=== PATIENT | female | born 1990 | race Caucasian/White ===

== ENCOUNTER 2022-07-22 21:55 | Inpatient (IN) | payer OTHER, SELFPAY ==
--- NOTE | 2022-06-30 12:56 | PC.NURSE ---
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 Patient states did genetic testing--baby is a tabitha of both syndromes
--- NOTE | 2022-07-22 07:42 | PM.IMHP ---
H&P: HPI History of Present Illness Date/Time: 07/22/22 07:42 Chief Complaint: induction of labor Narrative: 32-year-old 4 para 2 admitted for induction of labor at term. She is positive for group B strep. Her last menstrual period was 10/15/2021 with an EDC of 07/29/2022 confirmed by very early ultrasound. The cervix is favorable risks and benefits reviewed. PMFSH Family History Family History Son Rock-Hirschhorn syndrome Sibling Hallermann-Streiff syndrome Sibling Hypertension Social History Social History Smoking status: Never smoker Substance use: never Gender identity (if verbalized by the patient): Female Spiritual care concerns: No Meds Home Medications and Allergies Home Medications Medication Instructions Recorded Confirmed Type vit no.95-ferrous 1 tablet PO DAILY 09/05/19 09/05/19 History fumarate 28 mg-folic acid 800 mcg tablet () Allergies Allergy/AdvReac Type Severity Reaction Status Date / Time No Known Allergies Allergy Unknown Verified 06/30/22 12:31 Exam Const: General: cooperative, healthy appearing and comfortable Nutritional Appearance: average body habitus Orientation/consciousness: oriented to person, oriented to place and oriented to time Chest: Chest palpation & inspection: normal inspection of the chest Resp: Effort & Inspection: normal respiratory effort Cardio: Rate: regular rate Rhythm: regular rhythm Heart sounds: S1 normal heart sound present and S2 normal heart sound present GI: Inspection: normal to inspection Assessment and Plan Assessment and plan (1) Term : Code(s): Z34.90 - Encounter for supervision of normal , unspecified, unspecified trimester Status: Acute (2) Positive testing for group B Streptococcus: Code(s): B95.1 - Streptococcus, group B, as the cause of diseases classified elsewhere Status: Acute Plan medical induction of labor. Group B strep prophylaxis. Spontaneous vaginal delivery is expected. She has an epidural candidate
[2022-07-22 22:28] VITALS: BMI 27.5
--- NOTE | 2022-07-22 22:29 | LDADM ---
This patient, Christal Dineor, was admitted to Labor/Delivery/Recovery 105 on 07/22/22 at 21:55. Plans for labor, pain management and were discussed with patient. Patient/family oriented to hospital policies and general routines including ID bracelet, bed and alarms, visiting hours, pain management, procedures, bathroom and other care routines, personal items, smoking policy, room service/diet and guest tray routines, security routines, and visiting hours. Patient/Family are encouraged to report perceived risks to care and to ask questions if they do not understand what they are told or what they should do. See OBIX for further documentation.
[2022-07-22 23:00] VITALS: TEMP 36.4
[2022-07-22 23:00] LABS: Basophils Percent Auto 0.2 % (0.2-1.2); Eosinophils Absolute Auto 0.2 K/mm3 (0-0.3); Eosinophils Percent Auto 1.5 % (0-4.4); Hematocrit 35.8 % (37.0-47.0); Hemoglobin 11.8 g/dL (12.0-15.0); Immature Granulocyte Absolute 0.06 K/mm3 (0.00-0.031); Immature Granulocyte Percent A 0.5 % (0-0.5); Lymphocytes Absolute Auto 2.67 K/mm3 (0.9-3.2); Lymphocytes Percent Auto 21.7 % (18.3-44.2); Mean Corpuscular Hemoglobin 29.5 pg (26-34); Mean Corpuscular Volume 89.5 fl (80-100); Mean Platelet Volume 10.9 fl (7.4-10.4); Monocytes Absolute Auto 0.7 K/mm3 (0.1-0.6); Monocytes Percent Auto 5.9 % (2.6-8.5); Neutrophils Absolute Auto 8.6 K/mm3 (1.3-6.7); Neutrophils Percent Auto 70.2 % (45.5-73.1); Platelet Count Result 251 k/mm3 (150-375); Red Cell Distribution Width 13.8 % (11.5-14.5); White Blood Count 12.3 K/mm3 (4.5-10.0)
[2022-07-22] MEDS: LACTATED RINGERS 1,000 ML 125 ML IV CONT (23:00)
[2022-07-22] MEDS: OXYTOCIN 30 UNITS/NS 500 ML 30 UNITS/500 ML BAG IV CONT (23:00)
[2022-07-22] MEDS: AMPICILLIN 2 GM/NS 100 ML 2 GM/100 ML BAG IVPB (23:00)
[2022-07-23] VITALS (124 sets, daily range): BP systolic 95–155; BP diastolic 34–98; PULSE 58–109; RESP 16–18; TEMP 36.4–36.9; O2SAT 94–100
[2022-07-23] MEDS: LACTATED RINGERS 1,000 ML 125 ML IV CONT ×2 (01:01→05:34)
--- NOTE | 2022-07-23 01:15 | WPDANESEPP ---
Anes - Eval Pre Procedure Procedure: labor epidural Date/Time: 07/23/22 01:15 Pre Op Diagnosis: IOL Patient Data Age: 32 Gender: F Height: 1.65 m Weight: 75 kg Last Vital Signs Temp 36.4 C L 07/22/22 23:00 Pulse 62 07/23/22 01:00 BP 124/64 07/23/22 01:00 Pulse Ox 99 07/23/22 01:12 O2 Del Method Room Air 07/22/22 22:28 Allergies Allergy/AdvReac Type Severity Reaction Status Date / Time No Known Allergies Allergy Unknown Verified 06/30/22 12:31 Home Medications Medication Instructions Recorded Confirmed Type vit no.95-ferrous 1 tablet PO DAILY 09/05/19 07/22/22 History fumarate 28 mg-folic acid 800 mcg tablet () Laboratory Tests 07/22/22 07/22/22 07/22/22 22:44 22:44 22:44 WBC 12.3 K/mm3 H K/mm3 (4.5-10.0) RBC 4.00 M/mm3 L M/mm3 (4.2-5.4) Hgb 11.8 g/dL L g/dL (12.0-15.0) Hct 35.8 % L % (37.0-47.0) MCV 89.5 fl fl (80-100) MCH 29.5 pg pg (26-34) MCHC 33.0 g/dl g/dl (32-36) RDW 13.8 % % (11.5-14.5) Plt Count 251 k/mm3 k/mm3 (150-375) MPV 10.9 fl H fl (7.4-10.4) Immature Gran % (Auto) 0.5 % % (0-0.5) Neut % (Auto) 70.2 % % (45.5-73.1) Lymph % (Auto) 21.7 % % (18.3-44.2) [place] % (Auto) 5.9 % % (2.6-8.5) Eos % (Auto) 1.5 % % (0-4.4) Baso % (Auto) 0.2 % % (0.2-1.2) Lymph # (Auto) 2.67 K/mm3 K/mm3 (0.9-3.2) [place] # (Auto) 0.7 K/mm3 H K/mm3 (0.1-0.6) Eos # (Auto) 0.2 K/mm3 K/mm3 (0-0.3) Baso # (Auto) 0.0 K/mm3 K/mm3 (0.0-0.1) Abs Immat Gran (auto) 0.06 K/mm3 H K/mm3 (0.00-0.031) Absolute Neuts (auto) 8.6 K/mm3 H K/mm3 (1.3-6.7) Absolute Nucleated RBC 0.0 K/mm3 K/mm3 (0.0-0.012) Nucleated RBC % 0.0 % % (0.0-0.2) RPR Pending Blood Type A Positive Antibody Screen Negative Patient hx anesthesia problems: none Family hx anesthesia problems: none Results Review: All pre-operative results and documents have been reviewed as part of the pre-operative evaluation. [facility] Family History Family History Son Rock-Hirschhorn syndrome Sibling Hallermann-Streiff syndrome Sibling Hypertension Social History Social History Smoking packs per day: 0.5 Smoking cigarettes per day: 10.0 Years smoked: 10 Smoking pack-years: 5.00 Smoking status: Former smoker Tobacco type: cigarettes Substance use: never Gender identity (if verbalized by the patient): Female Spiritual care concerns: No Exam Day of Procedure 07/23/22 01:15 Patient weight: overweight Heart: regular rate and rhythm Lungs: normal air movement Airway: Mallampati scale Neurological: alert and oriented
[2022-07-23] MEDS: AMPICILLIN 1 GM/NS 50 ML 1 GM/50 ML BAG IVPB ×2 (03:00→07:08)
--- NOTE | 2022-07-23 06:14 | PM.OBPNLAB ---
Pain Control Date/time seen: 07/23/22 06:14 Pain control: tolerating well and epidural Pelvic Exam Dilation (cm): 4 Effacement (%): 80 station: -2 Amniotic membrane status: Ruptured Contractions Monitor mode: External Contraction frequency: 3
[2022-07-23 06:25] LABS: Rapid Plasma Reagin Non-Reactive (NonReactive)
--- NOTE | 2022-07-23 07:33 | PM.OBPRVD ---
OB - Delivery Note Procedure Delivery date: 07/23/22 Procedure: mil Induction method: AROM Delivery augmentation: Pitocin Delivery monitor: External FHT Route of delivery: Episiotomy description: None Laceration Description: Perineal - 1st Degree Specimen: No Quantitative Blood Loss (ml): 59 Anesthesia type: Epidural Disposition: Floor Baby Date of : 07/23/22 Time of : 07:20 Weeks of gestation at delivery: 39 gender: Female Weight (pounds): 7 Weight (ounces): 11 presentation: vertex position: Right Occiput Anterior Placenta delivery description: Spontaneous Cord Vessel Description: 3 Vessels and Delayed Cord Clamping score one minute: 9 score five minutes: 9
[2022-07-23] MEDS: OXYTOCIN 30 UNITS/NS 500 ML 30 UNITS/500 ML BAG 125 UNITS IV CONT (07:48)
[2022-07-23] MEDS: WITCH HAZEL 40 PADS 1 PAD TOPICAL (10:28)
[2022-07-23] MEDS: BENZOCAINE 20% AER SPR (*SP) 56 GM CAN 1 SPRAY TOPICAL (10:29)
[2022-07-23] MEDS: IBUPROFEN 600 MG TABLET PO ×2 (13:11→21:11)
[2022-07-23] MEDS: MULTIVIT/MIN/PREN/FOL AC/IRON TABLET 1 TAB PO (13:11)
[2022-07-23] MEDS: LANOLIN (LANSINOH) 7.5 GM CREAM 1 APPLIC TOPICAL (13:12)
[2022-07-23] MEDS: ACETAMINOPHEN 325 MG TABLET 650 MG PO (17:37)
[2022-07-23] MEDS: DOCUSATE SODIUM 100 MG CAPSULE PO (17:38)
[2022-07-24] MEDS: IBUPROFEN 600 MG TABLET PO ×2 (04:47→12:01)
[2022-07-24 05:04] VITALS: BP 113/70; PULSE 75; RESP 18; TEMP 36.8; O2SAT 98
[2022-07-24 05:13] LABS: Hematocrit 32.5 % (37.0-47.0); Hemoglobin 10.6 g/dL (12.0-15.0)
--- NOTE | 2022-07-24 08:34 | WPDANESPN ---
Anes - Prog Note Post-Op Date/Time: 07/24/22 08:34 Cardiovascular status: normal Respiratory status: normal Airway patency: baseline Mental status: baseline Post-Op hydration status: normal Vital Signs: Last Vital Signs Temp 36.8 C 07/24/22 05:04 Pulse 75 07/24/22 05:04 Resp 18 07/24/22 05:04 BP 113/70 07/24/22 05:04 Pulse Ox 98 07/24/22 05:04 O2 Del Method Room Air 07/23/22 20:00 Pain Score (VAS): 0 I/O: Intake & Output 07/23/22 07/24/22 07/24/22 23:59 07:59 15:59 Intake Total 500 Balance 500 Laboratory Tests 07/24/22 04:39 07/24/22 04:39 Hgb 10.6 L Hct 32.5 L Post-procedural complaints: none Patient Feedback: Patient satisfied with anesthetic care.
--- NOTE | 2022-07-24 11:34 | PM.OBPNVD ---
OB - PN: Subj Subjective Date/time seen: 07/24/22 11:34 Narrative: Pain OK. Would like to go home. OB - PN: Obj Data Labs CBC & Chem 7: 07/24/22 04:39 Labs: Laboratory Results - last 24 hr 07/24/22 04:39 Hgb 10.6 L Hct 32.5 L OB - PN A/P Plan Comments: A: PPD#1, doing well. P: Home to f/u 6 weeks. Exam Psych: Other: AVSS ABD soft, nontender, fundus firm EXT nontender
[2022-07-24 12:01] VITALS: BP 119/78; PULSE 67; RESP 16; TEMP 36.2; O2SAT 98
[2022-07-24] MEDS: DOCUSATE SODIUM 100 MG CAPSULE PO (12:01)
[2022-07-24] MEDS: MULTIVIT/MIN/PREN/FOL AC/IRON TABLET 1 TAB PO (12:01)
[2022-07-26 08:32] VITALS: BP 136/89; PULSE 102; RESP 20; TEMP 36.7; O2SAT 98
--- NOTE | 2022-07-27 11:15 | PM.OBDSVD ---
DS: Admitting Diagnosis Discharge Date 07/24/22 Admitting Diagnosis IUP at term GBS colonization DS: Discharge Diagnosis Discharge Diagnosis (1) Positive testing for group B Streptococcus: Code(s): B95.1 - Streptococcus, group B, as the cause of diseases classified elsewhere Status: Acute (2) (normal spontaneous vaginal delivery): Code(s): O80 - Encounter for full-term uncomplicated delivery Status: Acute OB - DS: Summary OB Procedures : None OB Procedures Intrapartum: Spontaneous Vag Delivery and GBS prophylaxis OB Procedures: : None Time Spent with Patient Time attestation: Total time spent providing and/or coordinating discharge services: Discharge Plan Discharge Attending physician on discharge: Aries Cordon Consulting providers: Kendra Bahena ; Marisa Merlos Discharging Clinician: Aries Cordon Patient Disposition: Home, Self-Care Activity: pelvic rest Diet: regular Discharge Instructions: Education: Mom and Baby Guide Given to: Mother Follow-Up: Call your delivering provider's office for an appointment to be seen in: 6 Weeks Mom and baby should come to the [facility] for the follow-up appointment. Appointment Date/Time: Tuesday, July 26, 2022 at 8:00 am What to expect at your follow-up visit: Physical Assessment Call [phone] if you are unable to keep your appointment time. BREAST CARE: * Wear a snug supportive bra. * For engorgement discomfort: Breast Feeding: * Apply warm moist washcloths * Express milk as needed to relieve engorgement * Wear loose clothing * For sore nipples: * Identify correct latch-on * Apply warm moist washcloths before and after nursing * Air dry nipples after nursing * May apply Lansinoh cream to nipples EPISIOTOMY/PERINEAL CARE: * Until bleeding stops, use your nori bottle after urinating * Change your pad frequently throughout the day * You may take sitz baths several times a day (fill your bathtub with warm water and soak for 20 minutes.) Do NOT bathe in the water * No tub baths until seen by your physician - You may shower ACTIVITY: * Rest as much as possible. * Do not exercise or lift anything heavier than your baby (such as laundry or other children.) * Avoid stairs or driving as much as possible. * Do not put anything into the vagina. No douching, tampons, or sexual activity until seen by physician. NOTIFY PHYSICIAN IF YOU HAVE ANY QUESTIONS OR IF ANY OF THE FOLLOWING SYMPTOMS OCCUR: * If your episiotomy or incision becomes red, swollen, or more painful than what you have experienced in the hospital. * If your vaginal bleeding becomes foul smelling. * If your vaginal bleeding becomes more heavy than a period or if your bleeding changes from pink to bright red. However, you may pass an occasional walnut-sized clot once or twice for the first week . * If you experience a sharp, shooting pain in you calves. * If you discover a hard, reddened area on your breast or if you experience flu-like symptoms. DIET: * Eat regular, well-balanced meals. * Drink plenty of fluids daily. If , drink to thirst. Per Dr. Lopez, Call or return if temperature above 100.4? F, increased abdominal pain, increased vaginal bleeding or any new problems. Patient Instructions: Antibiotic Form Follow-up/Referrals: Aries Cordon MD [Physician] - 6 Weeks Discharge Medications: New ibuprofen 600 mg tablet 600 mg PO Q6H PRN (Reason: cramps) Qty: 30 0RF Continued PNV cmb#95-ferrous fumarate-FA [] 28 mg iron- 800 mcg Tablet 1 tablet PO DAILY Date of admission: 07/22/22 21:55 Primary Care Provider: Erasmo Peguero Admitting Provider: Aries Cordon Attending physician on admission: Lex Lopez
== END 2022-07-24 13:50 | disposition home or self-care (01) | DRG 807 ==
LOC: ANHLDR 07-23 08:55 → ANHOB2 07-24 11:35 → ANHLDR 07-27 08:54 → ANHOB2 07-27 08:54
PROVIDERS: Admitting Provider Obstetrics & Gynecology; PCP Family Medicine; Visit Provider Obstetrics & Gynecology
DX: O99.824 Streptococcus B carrier state complicating childbirth (principal); Z37.0 Single live birth; O70.0 First degree perineal laceration during delivery; O76 Abnormality in fetal heart rate and rhythm complicating labor and delivery; Z3A.39 39 weeks gestation of pregnancy
CPT/HCPCS: 36415; 85014; 85018; 85025; 86592; 86850; 86900; 86901; A9270; J0290; J2590; J2795; J7120

== ENCOUNTER 2024-03-14 19:21 | Emergency (ER) | payer OTHER, SELFPAY ==
--- NOTE | 2024-03-14 19:25 | ED.URI ---
HPI - URI/Sore Throat General Chief Complaint: Upper Respiratory Infection Stated Complaint: Cold symptoms Time Seen by Provider: 03/14/24 19:36 Source: patient, RN notes reviewed and old records reviewed Mode of arrival: ambulatory Limitations: no limitations History of Present Illness HPI Narrative: 33-year-old female presents to the [facility] with sore throat, ear pain, body aches. States that she does take Zyrtec every day, has been using Flonase. Has taken Sudafed Symptoms started either Tuesday or Tuesday Reports that her child was seen by the hand decorator and was told that it was a viral infection. Onset (ago): day(s) (3-4) Related Data Home Medications Medication Instructions Recorded Confirmed No Home Medications 03/14/24 03/14/24 Allergies Allergy/AdvReac Type Severity Reaction Status Date / Time No Known Allergies Allergy Unknown Verified 03/14/24 19:40 Review of Systems Review of Systems: All systems reviewed & are unremarkable except as noted in HPI and below Constitutional: Constitutional: Reports no additional constitutional complaints Eyes: Eyes: Reports no additional eye complaints ENT: Reports as per HPI, Reports otalgia and Reports sore throat Cardiovascular: Cardiovascular: Reports no additional cardiovascular complaints, Denies chest pain and Denies dyspnea Respiratory: Respiratory: Reports no additional respiratory complaints, Denies chest congestion, Denies cough and Denies dyspnea Gastrointestinal: Gastrointestinal: Reports no additional gastrointestinal complaints, Denies abdominal pain, Denies nausea and Denies vomiting Musculoskeletal: Musculoskeletal: Reports no additional musculoskeletal complaints Integumentary/Breasts: Skin/Breast: Reports system reviewed and no additional complaints, except as docu Neurologic: Reports system reviewed and no additional complaints, except as documented Psychiatric: Psychiatric: Reports no additional psychiatric complaints Allergic/Immunologic: Allergic/Immunologic: Reports no additional allergic/immunologic complaints [facility] Family History Family History Son Rock-Hirschhorn syndrome Sibling Hallermann-Streiff syndrome Sibling Hypertension Social History Social History Smoking packs per day: 0.5 Smoking cigarettes per day: 10.0 Years smoked: 10 Smoking pack-years: 5.00 Smoking status: Former smoker Tobacco type: cigarettes Substance use: never Gender identity (if verbalized by the patient): Female Spiritual care concerns: No Comments At the time of my signature, I reviewed and agree with the nursing past medical, surgical, social, and family history. There is no relevant family history pertinent to the patient complaint. Exam Const: General: cooperative, healthy appearing, comfortable, no acute distress, well developed, alert and well nourished Nutritional Appearance: well nourished Orientation/consciousness: patient oriented x3 Limitations: no limitations HENMT: Head: normal to inspection Ears: hearing grossly normal bilaterally, external ears normal, EAC's normal, mastoids normal, no periauricular adenopathy and TM abnormal bulging on the right and with fluid behind the TM bilateral; not erythematous Face/Nose/Sinus: Normal external nose present, Normal nares present, Normal nasal mucous membranes and turbinates present, No nasal discharge present, normal facial exam and face symmetric Face and sinus: normal facial exam and face symmetric Mouth: Yes Normal oral and palatal mucosa present, Yes lip normal and Yes moist mucous membranes Throat: posterior oropharynx normal, tonsils normal, uvula midline, postnasal drainage and no uvular edema Eyes: General: appearance normal, both eyes and all related structures Alignment and Position: alignment normal Periorbital: periorbital findings normal Pupils: Equa
[2024-03-14 19:29] VITALS: BP 133/77; PULSE 99; RESP 16; TEMP 36.2; O2SAT 100
== END 2024-03-14 19:57 | disposition home or self-care (01) ==
PROVIDERS: Emergency Provider Nurse Practitioner; Referring Provider Family Medicine
DX: J06.9 Acute upper respiratory infection, unspecified (principal); Z87.891 Personal history of nicotine dependence
CPT/HCPCS: 87081; 87880; 99213; G0463